=== PATIENT | female | born 1975 | race American Indian/Alaskan Native ===

== ENCOUNTER 2021-04-27 07:46 | Outpatient (CLI) | payer BC, OTHER ==
--- NOTE | 2021-04-27 08:59 | Magnetic Resonance Report ---
MRI BRAIN WITHOUT CONTRAST INDICATION / CLINICAL INFORMATION: CHRONIC MIGRAINES. TECHNIQUE: Multisequence, multiplanar images were obtained. COMPARISON: None available. FINDINGS: CEREBRAL and CEREBELLAR HEMISPHERES: The brain parenchyma signal intensity and its ledezma-white interfa ce is within normal limits on all sequences. No evidence of mass or mass effect. No midline shift. No acute hemorrhage. No diffusion restriction to suggest acute infarct. No extra-axial fluid collec tion. VENTRICLES: Normal in size and configuration for age. VISUALIZED ORBITS: No significant abnormality. VISUALIZED PARANASAL SINUSES: There is minimal mucosal thickening in the inferior right maxillary sin us. The remaining sinuses and mastoid air cells are clear. ADDITIONAL FINDINGS: None. IMPRESSION: Unremarkable MR brain. Minimal right maxillary sinus disease, chronic. Signer Name: Madi Jimenez Jr, MD Signed: 04/27/2021 8:55 AM Workstation Name: [id number]
== END 2021-04-27 07:47 | disposition home or self-care (01) ==
LOC: MRI 07:46
PROVIDERS: ATTEND Psychiatry & Neurology Neurology
DX: J32.0 Chronic maxillary sinusitis (principal); G43.709 Chronic migraine without aura, not intractable, without status migrainosus
CPT/HCPCS: 70551

== ENCOUNTER 2021-08-16 08:17 | Outpatient (CLI) | payer OTHER, BC ==
[2021-08-16 09:12] LABS: Uric Acid 3.9 mg/dL (3.5-7.6)
[2021-08-16 09:34] LABS: C-Reactive Protein < 0.30 mg/dL (0.00-1.30)
== END 2021-08-16 08:18 | disposition home or self-care (01) ==
LOC: LAB 08:17
PROVIDERS: ATTEND Internal Medicine
DX: M13.842 Other specified arthritis, left hand (principal); R00.2 Palpitations
CPT/HCPCS: 36415; 82607; 84550; 85652; 86038; 86140; 86431

== ENCOUNTER 2021-08-29 15:26 | Outpatient (CLI) | payer OTHER, BC ==
--- NOTE | 2021-08-29 17:28 | XRay Report ---
LEFT HAND 3 VIEW(S) INDICATION / CLINICAL INFORMATION: M13.842 other specified arthritis left hand COMPARISON: None available. FINDINGS: BONES / JOINT(S): No acute fracture or subluxation. No significant arthritis. No osseous erosions. SOFT TISSUES: No significant abnormality. ADDITIONAL FINDINGS: None. IMPRESSION: 1. No acute findings. Signer Name: Alex Toribio MD Signed: 08/29/2021 5:23 PM Workstation Name: [id number]
== END 2021-08-29 15:27 | disposition home or self-care (01) ==
LOC: XRAY 15:26
PROVIDERS: ATTEND Internal Medicine
DX: M13.842 Other specified arthritis, left hand (principal)